=== PATIENT | female | born 1990 | race Hispanic/Latino ===

== ENCOUNTER 2022-04-11 05:30 | Inpatient (IN) | payer OTHER ==
[~2022-04-11 05:30] MED LIST: Lidocaine 1% (PF) 30 ML VIAL SC PRN; NS w/ Oxytocin 30 units 500 ML IV SCH; Penicillin G Potassium 5 MILL.UNITS in Sodium Chloride 0.9% 100 ML IVPB SCH
[2022-04-11] MEDS ORDERED: Misoprostol 200 MCG TAB PR PRN (07:26)
[2022-04-11] MEDS ORDERED: Ibuprofen 800 MG TAB PO PRN (07:26)
[2022-04-11] MEDS ORDERED: Ondansetron PF 4 MG/2 ML Vial IVP PRN (07:26)
[2022-04-11] MEDS ORDERED: Diphenoxylate HCl/Atropine Tablet PO PRN ×2 (07:26)
[2022-04-11] MEDS ORDERED: Promethazine HCl 25 MG/ML VIAL IM PRN (07:26)
[2022-04-11] MEDS ORDERED: NS w/ Oxytocin 30 units 500 ML IV SCH ×2 (07:26)
[2022-04-11] MEDS ORDERED: Carboprost 250 MCG/ML AMP IM PRN (07:26)
[2022-04-11] MEDS ORDERED: Lidocaine 1% (PF) 30 ML VIAL SC PRN (07:26)
[2022-04-11] MEDS ORDERED: HYDROcodone/Acetaminophen 5/325 mg Tablet PO PRN ×2 (07:26)
[2022-04-11] MEDS ORDERED: Butorphanol Tartrate 1 MG/ML VIAL SLOW IVP PRN (07:26)
[2022-04-11 07:55] VITALS: BMI 49.7
[2022-04-11] MEDS ORDERED: Penicillin G Potassium 5 MILL.UNITS VIAL ONE (07:55)
[2022-04-11] MEDS ORDERED: Bupivacaine 0.25% HCL 30 ML VIAL ONE (08:00)
[2022-04-11] MEDS ORDERED: ePHEDrine Sulfate 50 MG/10 ML VIAL ONE (08:00)
[2022-04-11] MEDS ORDERED: Misoprostol 100 MCG TAB ONE (08:22)
[2022-04-11] MEDS: Lactated Ringer's 1,000 ML IV SCH (08:24)
[2022-04-11 08:46] LABS: Hemoglobin 10.2 g/dL (12.0-15.5); Mean Corpuscular HGB CONC 33.6 g/dL (32.0-36.0); Mean Corpuscular Volume 77.4 fl (81.6-98.3); Platelet Count 298 10x3/uL (150-450); RBC Distribution Width 15.5 % (11.5-14.5); Red Blood Cell (RBC) Count 3.93 10x6/uL (3.90-5.03); White Blood Cell (WBC) Count 13.8 10x3/uL (3.5-10.5)
[2022-04-11 08:59] LABS: ALT (SGPT) 7 U/L (8-55); AST (SGOT) 10 U/L (5-34); Albumin 3.5 g/dL (3.5-5.0); Alkaline Phosphatase 173 U/L (40-110); Anion Gap 14 mmol/L (10-20); BUN (Urea Nitrogen) 8 mg/dL (7.0-18.7); Bilirubin, Total 0.4 mg/dL (0.2-1.2); Calc. Creatinine Clearance 346 mL/min (70-130); Calcium 8.5 mg/dL (7.8-10.44); Carbon Dioxide 19 mmol/L (22-29); Chloride 108 mmol/L (98-107); Estimated GFR 128; Globulin 2.6 g/dL (2.4-3.5); Glucose 99 mg/dL (70-105); Potassium 3.5 mmol/L (3.5-5.1); Protein, Total 6.1 g/dL (6.0-8.3); Sodium 137 mmol/L (136-145)
[2022-04-11 09:16] LABS: HBSAg Index 0.24 S/CO (0-0.99); Hep B Surf Ag Non-Reactive S/CO (NonReactive); Syphilis Antibody Nonreactive (Nonreactive); Syphilis Antibody Index 0.04 S/CO (<1.00 Non-Reactive)
[2022-04-11] MEDS: Penicillin G 2.5 MILL.units 2.5 MILL.UNITS in Premix Bag 1 BAG IVPB SCH ×3 (11:50→20:13)
[2022-04-11] MEDS: Misoprostol 100 MCG TAB VAG SCH ×2 (11:59→16:18)
[2022-04-11] MEDS: Acetaminophen 500 MG TAB PO PRN ×2 (14:48→22:44)
[2022-04-11] MEDS: Misoprostol 100 MCG TAB PO SCH (20:13)
[2022-04-12] MEDS: Penicillin G 2.5 MILL.units 2.5 MILL.UNITS in Premix Bag 1 BAG IVPB SCH ×3 (00:07→13:46)
[2022-04-12] MEDS: Misoprostol 100 MCG TAB PO SCH (00:39)
[2022-04-12] MEDS: hydrALAZINE 20 MG/ML VIAL SLOW IVP PRN ×2 (01:56→04:04)
[2022-04-12] MEDS ORDERED: Magnesium Sulfate 20 gm/500 ml 20 GM/500 ML BAG ONE (01:57)
[2022-04-12] MEDS ORDERED: Magnesium Sulfate 20 gm/500 ml 4 GM/100 ML BAG IVPB SCH (02:30)
[2022-04-12] MEDS: Labetalol HCl 100 MG/20 ML VIAL ONE ×2 (05:17→05:33)
[2022-04-12] MEDS ORDERED: Fentanyl 2 mcg/Bup 0.1% Cadd 100 ML ONE (07:44)
[2022-04-12] MEDS: NIFEdipine XL 30 MG TAB PO SCH ×2 (08:00→21:27)
[2022-04-12] MEDS: Fentanyl 2 mcg/Bupivacaine 0.1% Cassette 100 ML EPIDURAL SCH ×2 (09:15→16:44)
[2022-04-12] MEDS: Magnesium Sulfate 20 gm/500 ml 20 GM/500 ML BAG IVPB SCH ×2 (09:23→21:26)
[2022-04-12] MEDS ORDERED: Lactated Ringer's 500 ML IV PRN (09:28)
[2022-04-12] MEDS ORDERED: Promethazine HCl 25 MG/ML VIAL IM PRN (09:28)
[2022-04-12] MEDS ORDERED: diphenhydrAMINE 50 MG/ML VIAL IVP PRN (09:28)
[2022-04-12] MEDS ORDERED: Naloxone HCl 0.4 mg/ml Vial IVP PRN ×2 (09:28)
[2022-04-12] MEDS ORDERED: Ondansetron PF 4 MG/2 ML Vial IVP PRN (09:28)
[2022-04-12] MEDS ORDERED: Moisturizing Cream (Eucerin) 113 GM JAR TOP PRN (09:28)
[2022-04-12] MEDS ORDERED: ePHEDrine Sulfate 50 MG/10 ML VIAL SLOW IVP PRN (09:28)
[2022-04-12] MEDS ORDERED: Communication Order-Pharmacy FS SCH (09:30)
[2022-04-12] MEDS: Lactated Ringer's 1,000 ML IV SCH (11:52)
[2022-04-12] MEDS ORDERED: Lactated Ringer's 1,000 ML IV PRN (13:28)
[2022-04-12] MEDS ORDERED: Dextrose 5%-Lactated Ringers 1,000 ML IV PRN (13:29)
[2022-04-12] MEDS ORDERED: Tranexamic Acid 1,000 MG/10 ML VIAL ONE (17:35)
[2022-04-12] MEDS ORDERED: Sodium Chloride 0.9% 100 ML ONE (17:35)
[2022-04-12] MEDS ORDERED: Misoprostol 200 MCG TAB ONE (17:35)
[2022-04-12] MEDS: Acetaminophen 500 MG TAB PO PRN (21:26)
[2022-04-12] MEDS ORDERED: hydrALAZINE 20 MG/ML VIAL ONE (22:11)
[2022-04-12] MEDS ORDERED: hydrALAZINE 20 MG/ML VIAL SLOW IVP SCH (22:30)
[2022-04-13] MEDS: Acetaminophen 500 MG TAB PO PRN (01:27)
[2022-04-13] MEDS: Acetaminophen 325 MG TAB PO PRN ×2 (05:05→12:16)
[2022-04-13] MEDS: Magnesium Sulfate 20 gm/500 ml 20 GM/500 ML BAG IVPB SCH (08:43)
[2022-04-13] MEDS: NIFEdipine XL 30 MG TAB PO SCH ×3 (08:46→21:15)
[2022-04-13] MEDS ORDERED: NIFEdipine XL 30 MG TAB PO SCH (09:00)
[2022-04-13] MEDS: Labetalol HCl 100 MG/20 ML VIAL SLOW IVP PRN ×4 (09:35→13:49)
[2022-04-13] MEDS ORDERED: hydrALAZINE 20 MG/ML VIAL ONE (09:42)
[2022-04-13] MEDS: Labetalol HCl 200 MG TAB PO SCH (14:06)
[2022-04-13] MEDS ORDERED: Labetalol HCl 200 MG TAB PO SCH (14:15)
[2022-04-13] MEDS ORDERED: Simethicone Chewable 80 MG TAB PO SCH (14:30)
[2022-04-13] MEDS: Misoprostol 100 MCG TAB VAG SCH ×4 (15:07→21:20)
[2022-04-13] MEDS: Lactated Ringer's 1,000 ML IV SCH (15:10)
[2022-04-14] MEDS: Labetalol HCl 200 MG TAB PO SCH ×3 (00:04→21:45)
[2022-04-14] MEDS: Acetaminophen 500 MG TAB PO PRN (05:46)
[2022-04-14] MEDS: Misoprostol 100 MCG TAB VAG SCH ×6 (05:51→21:47)
[2022-04-14] MEDS: Ibuprofen 800 MG TAB PO SCH ×3 (06:07→21:45)
[2022-04-14] MEDS: Lactated Ringer's 1,000 ML IV SCH ×4 (07:19→16:09)
[2022-04-14] MEDS: Prenatal Vitamin 1 TAB PO SCH (09:25)
[2022-04-14] MEDS: NIFEdipine XL 30 MG TAB PO SCH ×2 (09:26→21:45)
[2022-04-14] MEDS: Docusate Calcium (SURFAK) 240 MG CAP PO SCH ×2 (09:27→21:45)
[2022-04-15] MEDS: Lactated Ringer's 1,000 ML IV SCH ×2 (00:20→04:41)
[2022-04-15] MEDS: Misoprostol 100 MCG TAB VAG SCH ×2 (04:41→12:41)
[2022-04-15] MEDS: Ibuprofen 800 MG TAB PO SCH (05:51)
[2022-04-15 08:41] VITALS: BP 143/76; TEMP 97.8
[2022-04-15] MEDS: NIFEdipine XL 30 MG TAB PO SCH (09:13)
[2022-04-15] MEDS: Docusate Calcium (SURFAK) 240 MG CAP PO SCH (09:13)
[2022-04-15] MEDS: Prenatal Vitamin 1 TAB PO SCH (09:14)
[2022-04-15] MEDS: Labetalol HCl 200 MG TAB PO SCH (09:14)
== END 2022-04-15 18:45 | disposition home or self-care (01) | DRG 807 ==
LOC: CSHLD 06:28 → CSHPP 04-13 19:40
PROVIDERS: ADMIT Obstetrics & Gynecology; ATTEND Obstetrics & Gynecology
PROC: 3E0P7VZ Introduction of Hormone into Female Reproductive, Via Natural or Artificial Opening (ICD-10-PCS; 2022-04-11)
PROC: 10E0XZZ Delivery of Products of Conception, External Approach (ICD-10-PCS; principal; 2022-04-12)
DX: O10.92 Unspecified pre-existing hypertension complicating childbirth (principal); Z37.0 Single live birth; Z3A.38 38 weeks gestation of pregnancy; E66.01 Morbid (severe) obesity due to excess calories; Z79.82 Long term (current) use of aspirin; O99.214 Obesity complicating childbirth; Z79.899 Other long term (current) drug therapy; O99.824 Streptococcus B carrier state complicating childbirth; Z90.49 Acquired absence of other specified parts of digestive tract
CPT/HCPCS: 36415; 51702; 80053; 85027; 86780; 86850; 86900; 86901; 87340; J0360; J2540; J2590; J3475; J7120; S0020